=== PATIENT | male | born 1955 | race Caucasian/White ===

== ENCOUNTER 2023-12-17 02:27 | Inpatient (IN) | payer OTHER ==
[2023-12-17 02:54] VITALS: BMI 29.4
[2023-12-17] MEDS ORDERED: guaiFENesin 600 MG TABLET.ER (FP) PO PRN (03:37)
[2023-12-17] MEDS ORDERED: MAGNESIUM HYDROX 2400MG/30ML ORAL SUSPENSION 30 ML CUP PO PRN (03:37)
[2023-12-17] MEDS ORDERED: BENZOCAINE/MENTHOL (CHLORASEPTIC ) LOZENGE MM PRN (03:37)
[2023-12-17] MEDS ORDERED: IBUPROFEN 400 MG TABLET (FP) PO PRN (03:37)
[2023-12-17] MEDS ORDERED: LOPERAMIDE HCL 2 MG CAPSULE PO PRN (03:37)
[2023-12-17] MEDS ORDERED: POLYETHYLENE GLYCOL (HEALTHYLAX) 3350 17 GM PACKET PO PRN (03:37)
[2023-12-17] MEDS ORDERED: IBUPROFEN 600 MG TABLET (FP) PO PRN (03:37)
[2023-12-17] MEDS ORDERED: BENZONATATE 200 MG CAPSULE PO PRN (03:37)
[2023-12-17] MEDS ORDERED: MAG HYDROX/AL HYDROX/SIMETH 30 ML UNIT-DOSE CUP PO PRN (03:37)
[2023-12-17] MEDS ORDERED: ACETAMINOPHEN 325 MG TABLET (FP) PO PRN (03:37)
[2023-12-17] MEDS: PRENATAL VITAMINS W/ FOLIC ACID TABLET (FP) PO SCH (09:40)
[2023-12-17] MEDS: LIDOCAINE 5% TOPICAL PATCH TP SCH (09:40)
[2023-12-17] MEDS: TUBERCULIN PPD 5 TU/0.1ML SYRINGE (IN PATIENT USE ONLY) ID ONE (10:20)
[2023-12-17] MEDS: THIAMINE HCL 100 MG TABLET (FP) PO SCH (22:18)
[2023-12-17] MEDS: MELATONIN 5 MG TABLETS PO SCH (22:19)
[2023-12-17] MEDS: LIDOCAINE PATCH REMOVAL MC SCH (22:21)
[2023-12-18] MEDS: SERTRALINE HCL 25 MG TABLET (FP) PO SCH (10:11)
[2023-12-18] MEDS: FOLIC ACID 1 MG TABLET (FP) PO SCH (12:04)
[2023-12-18] MEDS: CYANOCOBALAMIN 1,000 MCG TABLET (FP) PO SCH (12:04)
[2023-12-18] MEDS: RIFAXIMIN 550 MG TABLET PO SCH (12:04)
[2023-12-18 12:51] LABS: HEMATOCRIT 33.2 % (35.4-49); HEMOGLOBIN 11.5 GM/dL (11.7-16.9); MCH 30.9 pg (25.7-33.7); MCHC 34.6 g/dl (32.0-35.9); MEAN CELL VOLUME 89.2 fl (80-96); PLATELET COUNT 217 10^3/uL (134-434); RBC 3.72 M/mm3 (4.00-5.60); RDW 13.1 % (11.9-15.9); WHITE BLOOD COUNT 7.1 K/mm3 (4.0-10.0)
[2023-12-18 13:11] LABS: POTASSIUM 4.5 mmol/L (3.5-5.1)
[2023-12-18 13:19] LABS: BLOOD UREA NITROGEN 25.2 mg/dL (7-18)
[2023-12-18 13:20] LABS: CALCIUM 8.9 mg/dL (8.5-10.1)
[2023-12-18 13:21] LABS: ALBUMIN 3.7 g/dl (3.4-5.0)
[2023-12-18 13:22] LABS: CREATININE 1.2 mg/dL (0.55-1.3)
[2023-12-18 13:24] LABS: BILIRUBIN,TOTAL 0.6 mg/dL (0.2-1); TOT PROT 7.4 g/dl (6.4-8.2)
[2023-12-19 11:50] LABS: INR 1.22 (0.83-1.09); PROTHROMBIN TIME (PATIENT) 14.1 SEC (9.7-13.0)
[2023-12-19] MEDS: PANTOPRAZOLE 20 MG TABLET PO SCH (13:32)
[2023-12-19] MEDS: LACTULOSE 20 GM/30 ML UDC (FOR ORAL USE ONLY) PO SCH (13:32)
[2023-12-19 16:21] LABS: EPI CELLS 0 /uL (0-25.1); HYALINE CASTS 0 /uL (0-3.1); URINE APPEARANCE CLEAR; URINE BACTERIA 41 /uL (0-1359); URINE BILIRUBIN NEGATIVE (NEGATIVE); URINE COLOR YELLOW; URINE GLUCOSE (UA) NEGATIVE (NEGATIVE); URINE KETONE NEGATIVE (NEGATIVE); URINE LEUK ESTERASE TRACE (NEGATIVE); URINE NITRITE NEGATIVE (NEGATIVE); URINE PROTEIN NEGATIVE (NEGATIVE); URINE RBC 1 /uL (0-23.9); URINE UROBILINOGEN 0.2 mg/dL (0.2-1.0); URINE WBC 1 /uL (0-25.8)
[2023-12-20] MEDS: CHOLECALCIFEROL (VIT D3) 400 UNIT (10 MCG) TABLET PO SCH (10:20)
[2023-12-25] MEDS: IBUPROFEN 600 MG TABLET (FP) PO PRN (10:32)
[2023-12-26 09:04] LABS: INR 1.17 (0.83-1.09); PROTHROMBIN TIME (PATIENT) 13.5 SEC (9.7-13.0)
[2023-12-31] MEDS: amLODIPine BESYLATE 10 MG TABLET (FP) PO SCH (12:00)
[2024-01-01] MEDS: SERTRALINE HCL 50 MG TABLET (FP) PO SCH (10:21)
[2024-01-04] MEDS: LOSARTAN POTASSIUM 25 MG TABLET PO SCH (13:48)
[2024-01-04] MEDS: HYDROCORTISONE 1% TOPICAL OINT 30 GM TUBE TP PRN (15:53)
[2024-01-06 18:38] VITALS: BP 131/72; PULSE 66; RESP 18; TEMP 97.7
== END 2024-01-06 19:30 | disposition home or self-care (01) | DRG 895 ==
LOC: YASAS 02:27 → Y3W 06:41
PROVIDERS: ADMIT Allergy & Immunology; ATTEND Psychiatry & Neurology Pain Medicine
PROC: HZ42ZZZ Group Counseling for Substance Abuse Treatment, Cognitive-Behavioral (ICD-10-PCS; principal; 2023-12-17)
DX: F10.20 Alcohol dependence, uncomplicated (principal); Z59.00 Homelessness unspecified; E72.20 Disorder of urea cycle metabolism, unspecified; F32.A Depression, unspecified; I10 Essential (primary) hypertension; K74.60 Unspecified cirrhosis of liver; M54.50 Low back pain, unspecified; G89.29 Other chronic pain; R60.0 Localized edema; R79.1 Abnormal coagulation profile; Z86.718 Personal history of other venous thrombosis and embolism
CPT/HCPCS: 36415; 80053; 80305; 81003; 82140; 82272; 82652; 83735; 85027; 85610; 86780; 87635; 87811; 93005; 93010